=== PATIENT | female | born 1975 | race Caucasian/White ===

== ENCOUNTER → 2023-05-25 | Outpatient (CLI) | payer SELFPAY ==
--- NOTE | 2023-05-25 14:23 | BI_ITS ---
MAMMOGRAPHY - BILATERAL SCREENING 3-D TOMOSYNTHESIS REASON FOR EXAM: Female, 47 years old. Burning shooting pain in upper outer quadrant. PERTINENT HISTORY: Breast cancer in maternal aunt and maternal grandmother. TECHNIQUE: 2-D mammograms and 3-D Tomosynthesis of the breast (s) were performed. CAD was performed. COMPARISON: None. Baseline examination. FINDINGS: Scattered fibroglandular densities. Normal lymph nodes and benign calcifications. No dominant masses, suspicious microcalcifications, asymmetries, skin thickening or nipple retraction. BI/DIAG MAMM W/CAD, BILAT IMPRESSION: No abnormality of either breast. If the patient develops a palpable abnormality, she should return for further evaluation. Otherwise, yearly follow-up mammogram recommended. ASSESSMENT CATEGORY: BIRADS Category 1: Negative. A letter regarding these results will be sent to the patient by the facility within 30 days. FOLLOW UP RECOMMENDATION: Yearly follow up mammogram recommended. (A) Approximately 10% of breast cancers are not detected by mammography. A normal mammogram should not delay biopsy of a clinically suspicious abnormality. Electronically Signed: Leonel Mooney MD at 15:07 EST ,
== END | disposition home or self-care (01) ==
LOC: OPBI 14:17
DX: N64.4 Mastodynia (principal)
CPT/HCPCS: 77062; 77066; G0279